=== PATIENT | female | born 1990 | race African-American/Black ===

== ENCOUNTER 2019-08-27 09:01 | Emergency (ER) | payer MEDICAID ==
[~2019-08-27] VITALS: Ht 162.6 cm; Wt 43.7 kg
[2019-08-27] MEDS ORDERED: SODIUM CHLORIDE 0.9% 1,000 ML IV ONE (09:29)
[2019-08-27 10:13] LABS: HEMATOCRIT. 35.4 % (36.0-48.0); HEMOGLOBIN. 11.8 g/dL (12.0-16.0); MEAN CORPUSCULAR HEMOGLOBIN 27.8 pg (28.0-32.0); MEAN CORPUSCULAR VOLUME 83.4 fL (81.0-99.0); MEAN PLATELET VOLUME 7.8 fl (7.4-10.4); PLATELET 184 x1000/uL (130-400); RED BLOOD CELL COUNT 4.24 mill/uL (4.2-5.4); RED CELL DISTRIBUTION WIDTH 15.8 % (11.6-14.6)
[2019-08-27 10:18] LABS: CHLORIDE 101 mEq/L (98-107)
[2019-08-27 10:54] LABS: PLATELET ESTIMATE NORMAL
[2019-08-27 12:44] LABS: CHLORIDE 105 mEq/L (98-107); INR 1.1; PROTHROMBIN TIME 10.9 sec (9.6-11.0)
[2019-08-27 13:08] VITALS: BP 104/59
[2019-08-27 13:21] LABS: CLARITY URINE CLEAR (CLEAR); COLOR URINE YELLOW (YELLOW); KETONES URINE 4+ (NEGATIVE); LEUKOCYTE ESTERASE URINE TRACE (NEGATIVE); NITRITE URINE NEGATIVE (NEGATIVE); OCCULT BLOOD URINE NEGATIVE (NEGATIVE); PROTEIN URINE NEGATIVE (NEGATIVE); SPECIFIC GRAVITY URINE 1.014 (1.005-1.030)
== END 2019-08-27 14:24 | disposition home or self-care (01) ==
LOC: ER 09:01
DX: B34.9 Viral infection, unspecified (principal); R42 Dizziness and giddiness; D64.9 Anemia, unspecified
CPT/HCPCS: 36415; 71045; 80053; 81003; 83605; 84145; 85025; 85610; 87040; 87804; 93005; 96360; 96361; 99284; J7030

== ENCOUNTER 2022-05-04 11:09 | Emergency (ER) | payer MEDICAID ==
[~2022-05-04] VITALS: Ht 162.6 cm; Wt 47.0 kg
[2022-05-04 11:21] VITALS: BP 115/73
[2022-05-04] MEDS ORDERED: CEPH500T MT (13:28)
== END 2022-05-04 13:43 | disposition home or self-care (01) ==
LOC: ER 11:09
DX: L03.031 Cellulitis of right toe (principal)
CPT/HCPCS: 81025; 99283